=== PATIENT | male | born 1955 | race Caucasian/White ===

== ENCOUNTER 2020-10-07 12:24 | Emergency (ER) | payer OTHER ==
[~2020-10-07 12:24] MED LIST: ABC PLUS TABLE1 EACH PO; ALOE VERA PAIN454 GM PO; B COMPLEX1 EACH PO; BACTRIM DS TAB1 EACH PO; CELEBREX200 MG PO; CENTRUM ADULTS1 EACH PO; DIGESTIVE ENZY1 EAC2 PO; L-LYSINE500 M1 PO; LOVAZA1 GM PO; NEXIUM40 MG PO; NORCO 5-325 TA1 EACH PO; PERCOCET 7.5/321 TAB PO; POTASSIUM99 MG PO; PRINIVIL20 MG PO; TURMERIC 500 M1 EACH PO; VITAMIN A AND1 EACH PO; VITAMIN E400 UNI5 PO
== END 2020-10-07 15:55 | disposition other institution (70) ==
LOC: FER 12:24
DX: S62.522A Displaced fracture of distal phalanx of left thumb, initial encounter for closed fracture (principal); I10 Essential (primary) hypertension; W29.8XXA Contact with other powered hand tools and household machinery, initial encounter; Y92.009 Unspecified place in unspecified non-institutional (private) residence as the place of occurrence of the external cause
CPT/HCPCS: 73140